=== PATIENT | female | born 1965 | race American Indian/Alaskan Native ===

== ENCOUNTER 2019-06-14 02:28 | Emergency (ER) | payer MEDICARE ==
[2019-06-14] MEDS ORDERED: KETOROLAC 60 MG/2 ML INJ ONE (03:05)
[2019-06-14] MEDS ORDERED: traMADol 50 MG TAB PO ONE (03:07)
[2019-06-14] MEDS ORDERED: traMADol 50 MG TAB ONE (03:09)
--- NOTE | 2019-06-14 03:20 | Emergency Department Report ---
ED Lower Extremity HPI - General Chief Complaint: Extremity Injury, Lower Stated Complaint: LEFT KNEE PAIN Time Seen by Provider: 06/14/19 03:06 Source: patient Mode of arrival: Ambulatory Limitations: No Limitations - History of Present Illness Initial Comments: Patient is a 53-year-old female who presents to emergency room with complaints of left knee pain began around 8 PM last night. Patient states that she hit her knee against the cab door when getting inside. She states she has not been ambulatory. Patient has never hurt this knee before. He denies any numbness or weakness or any other injury. Patient denies any past medical history. Patient states that she had bariatric surgery and was advised not to use NSAIDs regularly. - Related Data Previous Rx's Medication Instructions Recorded Last Taken Type Acetaminophen/Codeine [Tylenol 1 tab PO Q6H PRN #7 tab 06/14/19 Unknown Rx /Codeine # 3 tab] Meloxicam [Mobic] 7.5 mg PO QDAY PRN #7 tablet 06/14/19 Unknown Rx Allergies Allergy/AdvReac Type Severity Reaction Status Date / Time NSAIDS (Non-Steroidal Allergy Unknown Verified 06/14/19 02:33 Anti-Inflamma ED Review of Systems ROS: Stated complaint: LEFT KNEE PAIN Other details as noted in HPI Comment: All other systems reviewed and negative ED Past Medical Hx - Past Medical History Previous Medical History?: No - Surgical History Past Surgical History?: Yes Additional Surgical History: barriatric X 4 years - Social History Smoking Status: Current Every Day Smoker Substance Use Type: None - Medications Home Medications: Home Medications Medication Instructions Recorded Confirmed Last Taken Type Acetaminophen/Codeine [Tylenol 1 tab PO Q6H PRN #7 tab 06/14/19 Unknown Rx /Codeine # 3 tab] Meloxicam [Mobic] 7.5 mg PO QDAY PRN #7 tablet 06/14/19 Unknown Rx ED Physical Exam - General Limitations: No Limitations General appearance: alert, in no apparent distress - Head Head exam: Present: atraumatic, normocephalic - Eye Eye exam: Present: normal appearance - ENT ENT exam: Present: mucous membranes moist - Extremities Exam Extremities exam: Present: other (TTP of the left anterior knee with edema present, pt will not perform ROM secondary to pain, pt will not allow assessment of ligaments, 2+ distal pulses, sensation intact) - Neurological Exam Neurological exam: Present: alert, oriented X3 - Psychiatric Psychiatric exam: Present: normal affect, normal mood - Skin Skin exam: Present: warm, dry, intact ED Course Vital Signs 06/14/19 06/14/19 02:38 05:22 Temperature 98.2 F Pulse Rate 114 H 90 Respiratory 20 16 Rate Blood Pressure 143/91 Blood Pressure 145/78 [Right] O2 Sat by Pulse 97 99 Oximetry ED Lower Extremity MDM - Radiology Data Radiology results: report reviewed LEFT KNEE 3 VIEW(S) INDICATION / CLINICAL INFORMATION: left knee pain COMPARISON: None available. FINDINGS: BONES / JOINT(S): No acute fracture or subluxation. Moderately advanced tricompartment degenerative arthrosis. Small moderate left knee joint effusion. SOFT TISSUES: Mild to moderate circumferential soft tissue swelling. ADDITIONAL FINDINGS: None. Signer Name: Armando Steele MD Signed: 06/14/2019 4:10 AM Workstation Name: [id number] Transcribed By: DT Dictated By: Maxwell Steele MD Electronically Authenticated By: Maxwell Steele MD Signed Date/Time: 06/14/19 0410 - Medical Decision Making Patient is a 53-year-old female who presents to emergency room with complaints of left knee pain began around 8 PM last night. Patient states that she hit her knee against the cab door when getting inside. She states she has not been ambulatory. Patient has never hurt this knee before. He denies any numbness or weakness or any other injury. Patient denies any past medical history. Patient states that she had bariatric surgery and was advised not to use NSAIDs regularly. initial vitals with elevated HR which improved after pain medication administration. on exam: TTP of the left anterior knee with edema present, pt will not perform ROM secondary to pain, pt will not allow assessment of ligaments, 2+ distal pulses, sensation intact. XR of the left knee: No acute fracture or subluxation. Moderately advanced tricompartment degenerative arthrosis. Small moderate left knee joint effusion.SOFT TISSUES: Mild to moderate circumferential soft tissue swelling. due to inability to fully assess pts ROM and ligament stability pt was placed in knee immobilizer and given crutches and crutch training and discussed to see an orthopedic in the next 2-3 days for full examination. advised pt to please take medication as prescribed. Do not drive or operate heavy machinery while taking the medication. may use ice, elevation of the leg, rest. please follow up with Dr. Mazariegos, orthopedic in the next 2-3 days. Return to the emergency room for any new or worsening symptoms. - Differential Diagnosis strain, sprain, fx, dislocation, tendon/ligament injury Critical care attestation.: If time is entered above; I have spent that time in minutes in the direct care of this critically ill patient, excluding procedure time. ED Disposition Clinical Impression: Arthritis, Knee effusion, left Left knee pain Qualifiers: Chronicity: acute Qualified Code(s): M25.562 - Pain in left knee Left knee sprain Qualifiers: Encounter type: initial encounter Involved ligament of knee: unspecified ligament Qualified Code(s): S83.92XA - Sprain of unspecified site of left knee, initial encounter Disposition: TO HOME OR SELFCARE Is pt being admited?: No Does the pt Need Aspirin: No Condition: Stable Instructions: Knee Sprain (ED), Knee Effusion (ED), RICE Therapy (ED) Additional Instructions: Please take medication as prescribed. Do not drive or operate heavy machinery while taking the medication. may use ice, elevation of the leg, rest. please follow up with Dr. Mazariegos, orthopedic in the next 2-3 days. Return to the emergency room for any new or worsening symptoms. Prescriptions: Meloxicam [Mobic] 7.5 mg PO QDAY PRN #7 tablet PRN Reason: Pain, Moderate (4-6) Acetaminophen/Codeine [Tylenol /Codeine # 3 tab] 1 tab PO Q6H PRN #7 tab PRN Reason: Pain , Severe (7-10) Referrals: MYESHA MAZARIEGOS MD [Staff Physician] - 3-5 Days Time of Disposition: 04:25 Print Language: CHINESE
--- NOTE | 2019-06-14 04:15 | XRay Report ---
LEFT KNEE 3 VIEW(S) INDICATION / CLINICAL INFORMATION: left knee pain COMPARISON: None available. FINDINGS: BONES / JOINT(S): No acute fracture or subluxation. Moderately advanced tricompartment degenerative a rthrosis. Small moderate left knee joint effusion. SOFT TISSUES: Mild to moderate circumferential soft tissue swelling. ADDITIONAL FINDINGS: None. Signer Name: Armando Steele MD Signed: 06/14/2019 4:10 AM Workstation Name: [id number]
[2019-06-14] MEDS ORDERED: ACETAMINOPHEN W/CODEINE 300-30 MG TAB PO ONE (04:24)
[2019-06-14 05:25] VITALS: BP 145/78
== END 2019-06-14 05:00 | disposition home or self-care (01) ==
LOC: EDBD → EDSEX → ED 02:28
DX: S83.92XA Sprain of unspecified site of left knee, initial encounter (principal); M13.862 Other specified arthritis, left knee; Z88.8 Allergy status to other drugs, medicaments and biological substances; F17.200 Nicotine dependence, unspecified, uncomplicated; W22.8XXA Striking against or struck by other objects, initial encounter; Y93.89 Activity, other specified; Y92.89 Other specified places as the place of occurrence of the external cause; Y99.8 Other external cause status
CPT/HCPCS: J1885

== ENCOUNTER 2021-09-08 08:21 | Emergency (ER) | payer MEDICARE ==
--- NOTE | 2021-09-08 10:49 | Emergency Department Report ---
- General Chief Complaint: Upper Respiratory Infection Stated Complaint: HEADACHE/BODY ACHE/FATIGUE Time Seen by Provider: 09/08/21 10:33 Source: patient Mode of arrival: Ambulatory Limitations: No Limitations - History of Present Illness Initial Comments: 55-year-old female with a past medical history of hypertension, tobacco use and bipolar disorder presents to the ER today with complaints of flulike/URI symptoms. Patient states that her symptoms started yesterday. She reports headache, body aches, pressure but her sinuses and behind her eyes. She reports rhinorrhea, and mild sore throat as well as nausea and decreased appetite. She states her symptoms started yesterday. She states that she has been around her and kids who had similar symptoms. She states her know her kids were tested for the flu not Covid. She states that he did take the first dose of Pfizer vaccine about 2 weeks ago. He reports no chest pain, shortness of breath, wheezing, abdominal pain or any additional symptoms at this time. MD Complaint: cough, rhinorrhea, other (Denies body aches, sinus pain,) -: days(s) (1) - Related Data Previous Rx's Medication Instructions Recorded Last Taken Type Meloxicam [Mobic] 7.5 mg PO QDAY PRN #7 tablet 06/14/19 Unknown Rx Acetaminophen/Codeine [Tylenol 1 tab PO Q6H PRN #7 tab 09/08/21 Unknown Rx /Codeine # 3 tab] Ondansetron [Zofran Odt] 4 mg PO Q8HR #15 tab.rapdis 09/08/21 Unknown Rx Allergies Allergy/AdvReac Type Severity Reaction Status Date / Time NSAIDS (Non-Steroidal Allergy Unknown Verified 06/14/19 02:33 Anti-Inflamma ED Review of Systems ROS: Stated complaint: HEADACHE/BODY ACHE/FATIGUE Other details as noted in HPI Comment: All other systems reviewed and negative Constitutional: denies: chills, fever Eyes: denies: eye pain, eye discharge, vision change ENT: other (Rhinorrhea). denies: ear pain, throat pain, dental pain, hearing loss, epistaxis Respiratory: cough (Mild). denies: shortness of breath, SOB with exertion, SOB at rest, wheezing Cardiovascular: denies: chest pain Gastrointestinal: nausea. denies: melena Genitourinary: denies: urgency, dysuria, hematuria, discharge, abnormal menses, dyspareunia Musculoskeletal: myalgia. denies: back pain, joint swelling, arthralgia Skin: denies: rash, lesions Neurological: headache. denies: numbness, paresthesias, confusion, abnormal gait, vertigo, other Psychiatric: denies: anxiety, depression, auditory hallucinations, visual hallucinations, homicidal thoughts, suicidal thoughts Hematological/Lymphatic: denies: easy bleeding, easy bruising, swollen glands ED Past Medical Hx - Surgical History Additional Surgical History: barriatric X 4 years - Social History Smoking Status: Current Every Day Smoker Substance Use Type: None - Medications Home Medications: Home Medications Medication Instructions Recorded Confirmed Last Taken Type Meloxicam [Mobic] 7.5 mg PO QDAY PRN #7 tablet 06/14/19 Unknown Rx Acetaminophen/Codeine [Tylenol 1 tab PO Q6H PRN #7 tab 09/08/21 Unknown Rx /Codeine # 3 tab] Ondansetron [Zofran Odt] 4 mg PO Q8HR #15 tab.rapdis 09/08/21 Unknown Rx ED Physical Exam - General Limitations: No Limitations General appearance: alert, in no apparent distress - Head Head exam: Present: atraumatic, normocephalic, normal inspection - Eye Eye exam: Present: normal appearance, PERRL, EOMI Pupils: Present: normal accommodation - ENT ENT exam: Present: normal exam, mucous membranes moist - Neck Neck exam: Present: normal inspection, full ROM. Absent: meningismus - Respiratory Respiratory exam: Present: normal lung sounds bilaterally. Absent: respiratory distress, wheezes, rales, rhonchi, stridor - Cardiovascular Cardiovascular Exam: Present: regular rate, normal rhythm, normal heart sounds - Neurological Exam Neurological exam: Present: alert, oriented X3, CN II-XII intact, normal gait - Psychiatric Psychiatric exam: Present: normal affect, normal mood - Skin Skin exam: Present: intact ED Course Vital Signs 09/08/21 09/08/21 09:25 11:58 Temperature 98.0 F 97.7 F Pulse Rate 71 82 Respiratory 14 16 Rate Blood Pressure 162/100 139/103 [Left] O2 Sat by Pulse 100 100 Oximetry ED Medical Decision Making - Medical Decision Making Rapid flu negative. The patient is resting comfortably, is alert and in no distress and on her phone. The patient has normal mental status and is neurologically intact. The patient appears well and there is no significant dehydration. There is no respiratory distress and no signs of systemic toxicity. The history, exam, and current condition do not demonstrate an infectious process such as meningitis, severe pneumonia, retropharyngeal abscess, acute respiratory distress syndrome with hypoxia, sepsis or other serious viral/bacterial infection requiring further testing, treatment, consultation or admission at this time. Blood pressure was noted to be elevated, but she admitted that she had not taken her blood pressure medications today. Patient has no symptoms related to her high blood pressure. Remainder of her vital signs are stable. Discussed results with patient. I did encourage that she should get a COVID-19 test despite her getting a Covid vaccine 2 weeks ago to rule out that possibility. Patient expressed understanding agree with plan. The patient's condition is stable and appropriate for discharge. The patient will pursue further outpatient evaluation with the primary care physician. Critical care attestation.: If time is entered above; I have spent that time in minutes in the direct care of this critically ill patient, excluding procedure time. ED Disposition Clinical Impression: Viral illness Disposition: 01 HOME / SELF CARE / HOMELESS Is pt being admited?: No Does the pt Need Aspirin: No Condition: Stable Instructions: Viral Illness, Adult Additional Instructions: Rapid flu test today was negative. Your symptoms could be related to you just receiving the Covid vaccine but also a nonspecific viral illness, but I do recommend that she get a COVID-19 test once you leave here today at any local pharmacy or urgent care. In meantime, take the tylenol 3 for pain and or fever. Do not take regular Tylenol if you take this medication. Take the Zofran to help with any nausea. Recommend drinking lots of fluids. Recommend that you quarantine until you know the results of your test. Follow-up closely with your PCP. Return to the ER if your symptoms worsens. Prescriptions: Acetaminophen/Codeine [Tylenol /Codeine # 3 tab] 1 tab PO Q6H PRN #7 tab PRN Reason: Pain , Severe (7-10) Ondansetron [Zofran Odt] 4 mg PO Q8HR #15 tab.rapdis Referrals: SHAUNA ROMERO MD [Primary Care Provider] - 3-5 Days Forms: Work/School Release Form(ED) Time of Disposition: 11:49
[2021-09-08] MEDS ORDERED: ONDANSETRON 4 MG ODT TAB PO ONE (11:00)
[2021-09-08 12:00] VITALS: BP 139/103
== END 2021-09-08 12:01 | disposition home or self-care (01) ==
LOC: ED 08:21
DX: B34.9 Viral infection, unspecified (principal); F17.200 Nicotine dependence, unspecified, uncomplicated; Z88.6 Allergy status to analgesic agent; I10 Essential (primary) hypertension; F31.9 Bipolar disorder, unspecified
CPT/HCPCS: 87400; 99283; J3490; Q0162

== ENCOUNTER 2021-09-21 14:38 | Outpatient (CLI) | payer MEDICARE ==
--- NOTE | 2021-09-21 15:34 | XRay Report ---
CHEST 2 VIEWS INDICATION: CHEST PRESSURE. COMPARISON: 11/18/2019. FINDINGS: Support devices: None. Heart: Within normal limits. Lungs/pleura: No acute air space or interstitial disease. Left lower lung opacity has resolved since 11/18/2019. No pleural effusion or pneumothorax. Additional findings: None. IMPRESSION: No acute findings. Signer Name: Aly Tobar Jr, MD Signed: 09/21/2021 3:30 PM Workstation Name: [id number]
== END 2021-09-21 14:39 | disposition home or self-care (01) ==
LOC: XRAY 14:38
PROVIDERS: ATTEND Internal Medicine
DX: R07.9 Chest pain, unspecified (principal)
CPT/HCPCS: 71046